=== PATIENT | female | born 2000 ===

== ENCOUNTER 2021-09-15 21:47 | Emergency (ER) | payer OTHER ==
[2021-09-15 23:41] LABS: BASOPHIL 0.3 % (0-2); EOSINOPHIL 2.7 % (0-5); HCT 37.9 % (37.0-47.0); LYMPHOCYTE 21.7 % (15-48); MCH 28.4 pg (25.0-31.0); MCHC 34.3 g/dL (32.0-36.0); MCV 82.8 fL (78.0-100.0); MONOCYTE 6.2 % (0-12); MPV 8.7 fL (6.0-9.5); NEUTROPHIL 68.8 % (41-80); NRBC 0; PLT 371 K/uL (150-400); RBC 4.58 M/uL (4.20-5.40); RDW 13.3 % (11.5-14.0); WBC 13.8 K/uL (4.0-10.5)
[2021-09-15 23:57] LABS: ALBUMIN 4.6 g/dL (3.4-5.0); BILIRUBIN - TOTAL 0.4 mg/dL (0.2-1.0); CREATININE 0.5 mg/dL (0.51-0.95); GLOBULIN (CALCULATION) 3.2 g/dL; POTASSIUM 3.4 mmol/L (3.5-5.1); TOTAL PROTEIN 7.8 g/dL (6.4-8.2)
[2021-09-15 23:58] LABS: BILIRUBIN NEGATIVE (NEGATIVE); BLOOD 2+ Ery/uL (NEGATIVE); CLARITY CLEAR (CLEAR); COLOR YELLOW (YELLOW); GLUCOSE (U) NORMAL (NORMAL); LEUKOCYTES TRACE Leu/uL (NEGATIVE); NITRITE NEGATIVE (NEGATIVE); PROTEIN NEGATIVE (NEGATIVE); SPECIFIC GRAVITY >=1.030 (1.001-1.030); UROBILINOGEN 0.2 mg/dL (0.2-1.0)
[2021-09-16 00:08] LABS: BACTERIA 1+; URINARY WBC RARE
== END 2021-09-16 02:00 | disposition home or self-care (01) ==
LOC: FER 21:47
PROVIDERS: Internal Medicine
DX: O20.9 Hemorrhage in early pregnancy, unspecified (principal); Z3A.01 Less than 8 weeks gestation of pregnancy
CPT/HCPCS: 36415; 80053; 81001; 84145; 84702; 85025; 86900; 86901; 99284